=== PATIENT | female | born 1990 | race Hispanic/Latino ===

== ENCOUNTER 2023-11-22 01:17 | Emergency (ER) | payer OTHER, SELFPAY ==
[2023-11-22] MEDS ORDERED: Gabapentin 300 MG CAP ONE (01:59)
== END 2023-11-22 02:00 | disposition home or self-care (01) ==
LOC: ERS 01:17
DX: R20.2 Paresthesia of skin (principal); Z55.6 Problems related to health literacy
CPT/HCPCS: 99283